=== PATIENT | male | born 1995 | race African-American/Black ===

== ENCOUNTER 2017-10-07 04:16 | Emergency (ER) | payer SELFPAY ==
--- NOTE | 2017-10-07 04:19 | ED Physician Documentation ---
General Adult - HISTORIAN Historian: patient - HPI Stated Complaint: Nausea and vomiting Chief Complaint: Nausea,Vomiting,Diarrhea Onset: minutes (45) Timing: better Severity: mild Further Comments: yes (He states he was working at [employer] and he had chili cheese fries and he had nausea and 3-4 times of vomiting - he was at work so his employeer called EMT and he was transferred to the ER - he denies any further nausea . Denies any abdominal pain. NO fever. No sick contacts) Last known Well Code/Unknown Code: Unknown - ROS CONST: no problems EYES/ENT: none CVS/RESP: none GI/: vomiting, nausea. denies: abdominal pain, diarrhea MS/SKIN/LYMPH: none NEURO/PSYCH: denies: headache - PAST HX Past History: none Other History: none Surgeries/Procedures: none - SOCIAL HX Smoking History: non-smoker Alcohol Use: none Drug Use: none - FAMILY HX Family History: No - REVIEWED ASSESSMENTS Nursing Assessment Reviewed: Yes Vitals Reviewed: Yes General Adult Physical Exam - PHYSICAL EXAM GENERAL APPEARANCE: no distress EENT: eye inspection normal RESPIRATORY: no resp distress, chest non-tender, breath sounds normal CVS: reg rate & rhythm, heart sounds normal, no murmur ABDOMEN: soft, normal bowel sounds, no distension, non-tender BACK: normal inspection SKIN: warm/dry, normal color EXTREMITIES: non-tender, no edema NEURO: oriented X3, CN's nml as tested, motor nml, sensation nml, mood/affect nml, cognition normal Discharge Clincal Impression: Nausea and vomiting Qualifiers: Vomiting type: unspecified Vomiting Intractability: intractable Qualified Code( s): R11.2 - Nausea with vomiting, unspecified Additional Instructions: 1. [place] foods 2. Increase fluids 3. Follow up with PCP if symptoms continued 4. Return to ER for increased or persistent N/V or other concerns Condition: Stable Disposition: 01 HOME, SELF-CARE Decision to Admit: NO Date of Decison to Admit: 10/07/17 Decision Time: 04:21
[2017-10-07 04:36] VITALS: BP 119/62
== END 2017-10-07 04:30 | disposition home or self-care (01) ==
LOC: ED 04:16
DX: R11.2 Nausea with vomiting, unspecified (principal)
CPT/HCPCS: 99282